=== PATIENT | male | born 2000 | race Caucasian/White ===

== ENCOUNTER 2020-04-21 00:56 | Emergency (ER) | payer BC ==
[~2020-04-21] VITALS: Ht 170.2 cm; Wt 54.5 kg
[2020-04-21 01:02] VITALS: TEMP 98.6
[2020-04-21 01:40] VITALS: BP 124/81; PULSE 69
== END 2020-04-21 01:40 | disposition home or self-care (01) ==
LOC: COL.ER 00:56
DX: S61.210A Laceration without foreign body of right index finger without damage to nail, initial encounter (principal); Y28.1XXA Contact with knife, undetermined intent, initial encounter

== ENCOUNTER → 2020-05-01 | Outpatient (CLI) | payer BC ==
[2020-05-01 13:25] VITALS: BP 167/98; PULSE 66; TEMP 98
== END ==
LOC: COL.ER 13:19
DX: Z48.02 Encounter for removal of sutures (principal)